=== PATIENT | female | born 1950 | race African-American/Black ===

== ENCOUNTER 2016-07-21 20:44 | Inpatient (IN) | payer MEDICARE, MEDICAID ==
[~2016-07-21] VITALS: Ht 172.7 cm; Wt 67.2 kg
[~2016-07-21 20:44] MED LIST: CALCIUM ACETATE PO; COR12 PO; GABA300C PO; METH10TA2 PO; PROAIR; RISP1 PO; [UNRECOGNIZED DRUG - CODE] PO
[2016-07-21] MEDS ORDERED: ONDANSETRON HCL 4MG/2ML VIAL IV STA (21:23)
[2016-07-21] MEDS ORDERED: MORPHINE SULFATE 4 MG/ML CPJ (NOT FOR IM USE) IV STA (21:23)
[2016-07-21] MEDS ORDERED: ASPIRIN 325MG EC TABLET PO ONE (21:30)
[2016-07-21 22:08] LABS: CHLORIDE 102 mEq/L (98-107)
[2016-07-21 22:09] LABS: EOSINOPHILS % 1.1 % (0.0-5.0); HEMATOCRIT. 23.3 % (36.0-48.0); HEMOGLOBIN. 7.4 g/dL (12.0-16.0); INDEX HEMOLYSI 1 (1-3); INDEX ICTERIC 1 (1-4); INDEX LIPEMIC 1 (1-3); LYMPHOCYTES % 24.5 % (20.0-50.0); MEAN CORPUSCULAR HEMOGLOBIN 26.7 pg (28.0-32.0); MEAN CORPUSCULAR HGB CONC 31.9 g/dL (31.0-37.0); MEAN CORPUSCULAR VOLUME 83.5 fL (81.0-99.0); MEAN PLATELET VOLUME 8.8 fl (7.4-10.4); MONOCYTES % 13.1 % (2.0-8.0); NEUTROPHILS % 60.3 % (40.0-76.0); PLATELET 195 x1000/uL (130-400); RED BLOOD CELL COUNT 2.78 mill/uL (4.2-5.4); RED CELL DISTRIBUTION WIDTH 16.1 % (11.6-14.6); WHITE BLOOD COUNT 7.6 x1000/uL (4.5-11.0)
[2016-07-21 22:12] LABS: ALBUMIN 2.5 g/dL (3.4-5.0); ANION GAP 14; CALCIUM 7.1 mg/dL (8.5-10.1); CARBON DIOXIDE 28 mEq/L (21-32); LIPASE 777 IU/L (73-393); UREA NITROGEN BLOOD 74 mg/dL (7-21)
[2016-07-21 22:15] LABS: INR 1.2; PARTIAL THROMBOPLASTIN TIME 31.7 sec (24.0-34.0)
[2016-07-21 22:17] LABS: ALANINE AMINOTRANSFERASE 19 IU/L (13-61); eGFR 6 mL/min (>60)
[2016-07-21 22:19] LABS: CREATINE KINASE 69 IU/L (26-192)
[2016-07-21 22:20] LABS: TROPONIN I 0.04 ng/mL (0.00-0.04)
[2016-07-21 22:32] LABS: NT PRO B-TYPE NATRIURETIC PEP 106934 pg/mL (5-125)
[2016-07-22 03:59] VITALS: BP 175/95
[2016-07-22 04:41] VITALS: BP 175/95
[2016-07-22] MEDS ORDERED: ASPIRIN 81MG TABLET PO NR (05:45)
[2016-07-22] MEDS ORDERED: DEXTROSE 50% WATER 50ML SYRINGE IV PRN (05:45)
[2016-07-22] MEDS: INSULIN LISPRO 100 UNITS/ML SUBCUT SCH ×4 (06:08→21:00)
[2016-07-22] MEDS: BLOOD SUGAR DIAGNOSTIC STRIP TEST SCH ×4 (06:08→21:08)
[2016-07-22] MEDS: HYDRALAZINE HCL 50MG TABLET PO SCH ×3 (06:14→21:13)
[2016-07-22] MEDS: MORPHINE SULFATE 2 MG/ML CPJ (NOT FOR IM USE) IV PRN ×2 (06:22→21:18)
[2016-07-22 07:46] VITALS: BP 157/84
[2016-07-22] MEDS: METOPROLOL TARTRATE 50MG TABLET PO SCH ×2 (08:22→20:55)
[2016-07-22] MEDS: PANTOPRAZOLE SODIUM 40 MG/VIAL IV SCH (08:22)
[2016-07-22] MEDS: ACETAMINOPHEN 325MG TABLET PO PRN (08:39)
[2016-07-22 09:36] LABS: THYROID STIMULATING HORMONE 1.4 uIU/mL (0.36-3.74); TROPONIN I 0.03 ng/mL (0.00-0.04)
[2016-07-22] MEDS: METHADONE HCL 10MG TABLET PO SCH (11:36)
[2016-07-22 12:00] VITALS: BP 148/82
[2016-07-22 15:57] VITALS: BP 129/74
[2016-07-22] MEDS ORDERED: CALCIUM ACETATE 667 MG PO SCH (17:40)
[2016-07-22] MEDS: CALCIUM ACETATE 667MG CAPSULE PO SCH (17:54)
[2016-07-22 18:47] LABS: HEPATITIS B SURFACE AB 42.6 mIU/mL
[2016-07-22 19:26] LABS: HEPATITIS B CORE AB IGM NEGATIVE
[2016-07-22 20:00] VITALS: BP 152/81
[2016-07-22] MEDS: EPOETIN ALFA 10000UNITS/ML VIAL SUBCUT SCH (20:56)
[2016-07-23] VITALS (15 sets, daily range): BP systolic 138–167; BP diastolic 74–108
[2016-07-23] MEDS: HYDRALAZINE HCL 50MG TABLET PO SCH ×3 (05:12→21:15)
[2016-07-23] MEDS: INSULIN LISPRO 100 UNITS/ML SUBCUT SCH ×4 (06:27→21:00)
[2016-07-23] MEDS: BLOOD SUGAR DIAGNOSTIC STRIP TEST SCH ×4 (06:27→21:18)
[2016-07-23] MEDS: CALCIUM ACETATE 667MG CAPSULE PO SCH ×4 (07:40→16:54)
[2016-07-23 07:51] LABS: BASOPHILS % 1.3 % (0.0-2.0); EOSINOPHILS % 1.8 % (0.0-5.0); HEMATOCRIT. 25.9 % (36.0-48.0); HEMOGLOBIN. 8.1 g/dL (12.0-16.0); LYMPHOCYTES % 25.8 % (20.0-50.0); MEAN CORPUSCULAR HGB CONC 31.4 g/dL (31.0-37.0); MEAN PLATELET VOLUME 8.7 fl (7.4-10.4); MONOCYTES % 14.6 % (2.0-8.0); NEUTROPHILS % 56.5 % (40.0-76.0); PLATELET 210 x1000/uL (130-400); RED BLOOD CELL COUNT 3.12 mill/uL (4.2-5.4); RED CELL DISTRIBUTION WIDTH 15.9 % (11.6-14.6); WHITE BLOOD COUNT 6.4 x1000/uL (4.5-11.0)
[2016-07-23] MEDS: PANTOPRAZOLE SODIUM 40 MG/VIAL IV SCH (08:31)
[2016-07-23] MEDS: METHADONE HCL 10MG TABLET PO SCH (08:32)
[2016-07-23] MEDS: METOPROLOL TARTRATE 50MG TABLET PO SCH ×2 (08:32→21:15)
[2016-07-23] MEDS: CLONIDINE 0.1MG TABLET PO PRN ×2 (10:25→23:34)
[2016-07-23] MEDS: AZITHROMYCIN 500 MG TABLET PO SCH (10:25)
[2016-07-23 13:10] LABS: BASOPHILS % 1.1 % (0.0-2.0); HEMATOCRIT. 28.1 % (36.0-48.0); HEMOGLOBIN. 9.2 g/dL (12.0-16.0); LYMPHOCYTES % 24.1 % (20.0-50.0); MEAN CORPUSCULAR HEMOGLOBIN 27.6 pg (28.0-32.0); MEAN CORPUSCULAR HGB CONC 32.8 g/dL (31.0-37.0); MEAN CORPUSCULAR VOLUME 84.2 fL (81.0-99.0); MEAN PLATELET VOLUME 8.8 fl (7.4-10.4); MONOCYTES % 14.5 % (2.0-8.0); NEUTROPHILS % 59.3 % (40.0-76.0); PLATELET 191 x1000/uL (130-400); RED BLOOD CELL COUNT 3.34 mill/uL (4.2-5.4); RED CELL DISTRIBUTION WIDTH 16.3 % (11.6-14.6); WHITE BLOOD COUNT 5.8 x1000/uL (4.5-11.0)
[2016-07-23 13:43] LABS: CALCIUM 7.5 mg/dL (8.5-10.1); PHOSPHORUS 6.6 mg/dL (2.5-4.9)
[2016-07-23] MEDS: ACETAMINOPHEN 325MG TABLET PO PRN (17:34)
[2016-07-23] MEDS: MORPHINE SULFATE 2 MG/ML CPJ (NOT FOR IM USE) IV PRN (23:36)
[2016-07-24] VITALS: BP 167/89
[2016-07-24 04:00] VITALS: BP 166/90
[2016-07-24] MEDS: HYDRALAZINE HCL 50MG TABLET PO SCH ×3 (05:00→21:56)
[2016-07-24] MEDS: ACETAMINOPHEN 325MG TABLET PO PRN ×3 (05:01→22:04)
[2016-07-24 05:50] LABS: BASOPHILS % 0.8 % (0.0-2.0); EOSINOPHILS % 0.9 % (0.0-5.0); HEMATOCRIT. 28.8 % (36.0-48.0); HEMOGLOBIN. 9.4 g/dL (12.0-16.0); LYMPHOCYTES % 16.2 % (20.0-50.0); MEAN CORPUSCULAR HEMOGLOBIN 27.2 pg (28.0-32.0); MEAN CORPUSCULAR HGB CONC 32.7 g/dL (31.0-37.0); MEAN CORPUSCULAR VOLUME 83.2 fL (81.0-99.0); MEAN PLATELET VOLUME 9.4 fl (7.4-10.4); MONOCYTES % 9.4 % (2.0-8.0); NEUTROPHILS % 72.7 % (40.0-76.0); PLATELET 203 x1000/uL (130-400); RED BLOOD CELL COUNT 3.47 mill/uL (4.2-5.4); RED CELL DISTRIBUTION WIDTH 15.9 % (11.6-14.6); WHITE BLOOD COUNT 8.8 x1000/uL (4.5-11.0)
[2016-07-24 05:54] LABS: CALCIUM 7.6 mg/dL (8.5-10.1)
[2016-07-24] MEDS: INSULIN LISPRO 100 UNITS/ML SUBCUT SCH ×4 (06:14→21:00)
[2016-07-24] MEDS: BLOOD SUGAR DIAGNOSTIC STRIP TEST SCH ×4 (06:14→21:55)
[2016-07-24 08:00] VITALS: BP 196/94
[2016-07-24] MEDS: CALCIUM ACETATE 667MG CAPSULE PO SCH ×3 (08:01→17:16)
[2016-07-24] MEDS: METOPROLOL TARTRATE 50MG TABLET PO SCH ×2 (08:01→21:00)
[2016-07-24] MEDS: METHADONE HCL 10MG TABLET PO SCH (08:05)
[2016-07-24] MEDS: CLONIDINE 0.1MG TABLET PO PRN (08:07)
[2016-07-24] MEDS: AZITHROMYCIN 500 MG TABLET PO SCH (08:22)
[2016-07-24] MEDS: PANTOPRAZOLE SODIUM 40 MG/VIAL IV SCH (09:19)
[2016-07-24 12:00] VITALS: BP 162/83
[2016-07-24 16:00] VITALS: BP 150/82
[2016-07-24 20:00] VITALS: BP 136/69
[2016-07-24] MEDS: EPOETIN ALFA 10000UNITS/ML VIAL SUBCUT SCH (22:00)
[2016-07-25] VITALS (7 sets, daily range): BP systolic 139–169; BP diastolic 72–97
[2016-07-25] MEDS: HYDRALAZINE HCL 50MG TABLET PO SCH ×3 (05:39→21:54)
[2016-07-25] MEDS: BLOOD SUGAR DIAGNOSTIC STRIP TEST SCH ×4 (06:29→20:26)
[2016-07-25] MEDS: INSULIN LISPRO 100 UNITS/ML SUBCUT SCH ×4 (06:29→20:26)
[2016-07-25] MEDS: CALCIUM ACETATE 667MG CAPSULE PO SCH ×3 (07:40→17:40)
[2016-07-25] MEDS: METOPROLOL TARTRATE 50MG TABLET PO SCH ×2 (09:00→20:25)
[2016-07-25] MEDS: METHADONE HCL 10MG TABLET PO SCH (09:23)
[2016-07-25] MEDS: AZITHROMYCIN 500 MG TABLET PO SCH (09:25)
[2016-07-25] MEDS: PANTOPRAZOLE SODIUM 40 MG/VIAL IV SCH (10:29)
[2016-07-25] MEDS ORDERED: DIPHENHYDRAMINE 25MG CAPSULE PO NR (16:00)
[2016-07-25] MEDS ORDERED: DIPHENHYDRAMINE 50MG CAPSULE PO ONE (16:00)
[2016-07-25] MEDS: FAMOTIDINE 20MG TABLET PO SCH (16:14)
[2016-07-26] VITALS (7 sets, daily range): BP systolic 118–161; BP diastolic 69–126
[2016-07-26] MEDS: ACETAMINOPHEN 325MG TABLET PO PRN ×2 (04:48→21:37)
[2016-07-26] MEDS: CLONIDINE 0.1MG TABLET PO PRN (04:48)
[2016-07-26] MEDS: HYDRALAZINE HCL 50MG TABLET PO SCH (05:56)
[2016-07-26] MEDS: BLOOD SUGAR DIAGNOSTIC STRIP TEST SCH ×4 (06:43→21:36)
[2016-07-26] MEDS: INSULIN LISPRO 100 UNITS/ML SUBCUT SCH ×4 (06:43→21:00)
[2016-07-26] MEDS: CALCIUM ACETATE 667MG CAPSULE PO SCH ×4 (07:40→17:11)
[2016-07-26] MEDS: AZITHROMYCIN 500 MG TABLET PO SCH ×2 (09:00→09:29)
[2016-07-26] MEDS: FAMOTIDINE 20MG TABLET PO SCH (09:29)
[2016-07-26] MEDS: METOPROLOL TARTRATE 50MG TABLET PO SCH ×2 (09:30→21:37)
[2016-07-26] MEDS: METHADONE HCL 10MG TABLET PO SCH (09:32)
[2016-07-26] MEDS: HYDRALAZINE HCL 100MG TABLET PO SCH ×2 (13:26→21:38)
[2016-07-27] VITALS: BP 149/112
[2016-07-27 04:00] VITALS: BP 173/139
[2016-07-27] MEDS: HYDRALAZINE HCL 100MG TABLET PO SCH ×3 (05:10→21:05)
[2016-07-27] MEDS: ACETAMINOPHEN 325MG TABLET PO PRN ×2 (05:10→21:05)
[2016-07-27] MEDS: CLONIDINE 0.1MG TABLET PO PRN (05:11)
[2016-07-27] MEDS: BLOOD SUGAR DIAGNOSTIC STRIP TEST SCH ×4 (06:21→21:06)
[2016-07-27] MEDS: INSULIN LISPRO 100 UNITS/ML SUBCUT SCH ×4 (06:22→21:00)
[2016-07-27] MEDS: CALCIUM ACETATE 667MG CAPSULE PO SCH ×4 (07:40→16:45)
[2016-07-27 08:00] VITALS: BP 166/90
[2016-07-27] MEDS: METOPROLOL TARTRATE 50MG TABLET PO SCH ×2 (08:38→21:06)
[2016-07-27] MEDS: FAMOTIDINE 20MG TABLET PO SCH (08:38)
[2016-07-27] MEDS: METHADONE HCL 10MG TABLET PO SCH (08:39)
[2016-07-27] MEDS: AZITHROMYCIN 500 MG TABLET PO SCH ×2 (08:39→08:42)
[2016-07-27 12:00] VITALS: BP 159/88
[2016-07-27 16:00] VITALS: BP 154/98
[2016-07-27 20:00] VITALS: BP 155/83
[2016-07-27] MEDS: EPOETIN ALFA 10000UNITS/ML VIAL SUBCUT SCH (21:05)
[2016-07-28] VITALS: BP 155/83
[2016-07-28 04:00] VITALS: BP 151/82
[2016-07-28] MEDS: HYDRALAZINE HCL 100MG TABLET PO SCH ×2 (07:05→14:00)
[2016-07-28] MEDS: ACETAMINOPHEN 325MG TABLET PO PRN ×2 (07:05→20:20)
[2016-07-28] MEDS: BLOOD SUGAR DIAGNOSTIC STRIP TEST SCH ×4 (07:10→21:00)
[2016-07-28] MEDS: CALCIUM ACETATE 667MG CAPSULE PO SCH ×3 (07:40→17:04)
[2016-07-28 08:00] VITALS: BP 157/100
[2016-07-28] MEDS: FAMOTIDINE 20MG TABLET PO SCH (08:42)
[2016-07-28] MEDS: AZITHROMYCIN 500 MG TABLET PO SCH (08:42)
[2016-07-28] MEDS: METOPROLOL TARTRATE 50MG TABLET PO SCH (08:43)
[2016-07-28] MEDS: METHADONE HCL 10MG TABLET PO SCH (09:39)
[2016-07-28] MEDS: INSULIN LISPRO 100 UNITS/ML SUBCUT SCH ×3 (11:52→21:00)
[2016-07-28] MEDS: CLONIDINE 0.1MG TABLET PO PRN (15:09)
[2016-07-28 16:00] VITALS: BP 164/78
[2016-07-28] MEDS: NIFEDIPINE XL 60MG TAB PO SCH (18:45)
[2016-07-28] MEDS: LOSARTAN POTASSIUM 50 MG TABLET PO SCH (18:55)
[2016-07-28 20:00] VITALS: BP 169/85
[2016-07-29] VITALS: BP 172/87
[2016-07-29] MEDS ORDERED: HYDRALAZINE 20MG/ML VIAL IV SCH
[2016-07-29] MEDS ORDERED: HYDRALAZINE 20MG/ML VIAL IV PRN
[2016-07-29] MEDS: HYDRALAZINE HCL 100MG TABLET PO SCH ×4 (00:01→22:30)
[2016-07-29 04:00] VITALS: BP 167/85
[2016-07-29] MEDS: INSULIN LISPRO 100 UNITS/ML SUBCUT SCH ×4 (06:14→21:00)
[2016-07-29] MEDS: BLOOD SUGAR DIAGNOSTIC STRIP TEST SCH ×4 (06:14→21:00)
[2016-07-29 07:33] VITALS: BP 160/81
[2016-07-29] MEDS: CALCIUM ACETATE 667MG CAPSULE PO SCH ×3 (07:40→17:40)
[2016-07-29] MEDS: NIFEDIPINE XL 60MG TAB PO SCH ×2 (08:50→18:30)
[2016-07-29] MEDS: AZITHROMYCIN 500 MG TABLET PO SCH (08:51)
[2016-07-29] MEDS: FAMOTIDINE 20MG TABLET PO SCH (08:51)
[2016-07-29] MEDS: LOSARTAN POTASSIUM 50 MG TABLET PO SCH ×2 (08:51→18:29)
[2016-07-29] MEDS: METHADONE HCL 10MG TABLET PO SCH (08:51)
[2016-07-29 12:02] VITALS: BP 153/77
[2016-07-29 15:36] LABS: BASOPHILS % 0.6 % (0.0-2.0); EOSINOPHILS % 1.1 % (0.0-5.0); HEMATOCRIT. 31.4 % (36.0-48.0); HEMOGLOBIN. 10.1 g/dL (12.0-16.0); LYMPHOCYTES % 18.1 % (20.0-50.0); MEAN CORPUSCULAR HEMOGLOBIN 27.3 pg (28.0-32.0); MEAN CORPUSCULAR HGB CONC 32.2 g/dL (31.0-37.0); MEAN CORPUSCULAR VOLUME 84.8 fL (81.0-99.0); MONOCYTES % 9.2 % (2.0-8.0); PLATELET 232 x1000/uL (130-400); RED BLOOD CELL COUNT 3.71 mill/uL (4.2-5.4); RED CELL DISTRIBUTION WIDTH 16.7 % (11.6-14.6); WHITE BLOOD COUNT 9.6 x1000/uL (4.5-11.0)
[2016-07-29 15:48] LABS: CALCIUM 7.3 mg/dL (8.5-10.1); PHOSPHORUS 5.9 mg/dL (2.5-4.9)
[2016-07-29 16:00] VITALS: BP 142/72
[2016-07-29 20:00] VITALS: BP 133/89
[2016-07-30] VITALS: BP 125/69
[2016-07-30 04:00] VITALS: BP 140/83
[2016-07-30] MEDS: HYDRALAZINE HCL 100MG TABLET PO SCH ×3 (05:40→22:50)
[2016-07-30] MEDS: INSULIN LISPRO 100 UNITS/ML SUBCUT SCH ×4 (06:41→20:57)
[2016-07-30] MEDS: BLOOD SUGAR DIAGNOSTIC STRIP TEST SCH ×4 (06:41→20:57)
[2016-07-30] MEDS: CALCIUM ACETATE 667MG CAPSULE PO SCH ×3 (07:40→17:39)
[2016-07-30 07:43] VITALS: BP 151/77
[2016-07-30] MEDS: NIFEDIPINE XL 60MG TAB PO SCH ×2 (08:14→17:52)
[2016-07-30] MEDS: LOSARTAN POTASSIUM 50 MG TABLET PO SCH ×2 (08:14→17:52)
[2016-07-30] MEDS: AZITHROMYCIN 500 MG TABLET PO SCH (08:25)
[2016-07-30] MEDS: FAMOTIDINE 20MG TABLET PO SCH (08:27)
[2016-07-30] MEDS: METHADONE HCL 10MG TABLET PO SCH (08:27)
[2016-07-30 12:00] VITALS: BP 161/81
[2016-07-30 13:54] LABS: ALANINE AMINOTRANSFERASE 20 IU/L (13-61); ALBUMIN 2.7 g/dL (3.4-5.0); ANION GAP 13; CALCIUM 7.6 mg/dL (8.5-10.1); CARBON DIOXIDE 28 mEq/L (21-32); CHLORIDE 99 mEq/L (98-107); INDEX HEMOLYSI 1 (1-3); INDEX ICTERIC 1 (1-4); INDEX LIPEMIC 1 (1-3); MAGNESIUM 1.9 mg/dL (1.8-2.4); UREA NITROGEN BLOOD 35 mg/dL (7-21); eGFR 9 mL/min (>60)
[2016-07-30 13:56] LABS: THYROID STIMULATING HORMONE 0.93 uIU/mL (0.36-3.74)
[2016-07-30 15:57] VITALS: BP 160/85
[2016-07-30 20:00] VITALS: BP 160/114
[2016-07-30] MEDS: METOPROLOL TARTRATE 25MG TABLET PO SCH (21:07)
[2016-07-31] VITALS (7 sets, daily range): BP systolic 132–161; BP diastolic 73–110
[2016-07-31 05:43] LABS: EOSINOPHILS % 0.8 % (0.0-5.0); HEMATOCRIT. 31.3 % (36.0-48.0); LYMPHOCYTES % 18.8 % (20.0-50.0); MEAN CORPUSCULAR HEMOGLOBIN 26.8 pg (28.0-32.0); MEAN CORPUSCULAR HGB CONC 31.8 g/dL (31.0-37.0); MEAN CORPUSCULAR VOLUME 84.1 fL (81.0-99.0); MEAN PLATELET VOLUME 8.5 fl (7.4-10.4); MONOCYTES % 10.8 % (2.0-8.0); NEUTROPHILS % 68.6 % (40.0-76.0); PLATELET 246 x1000/uL (130-400); RED BLOOD CELL COUNT 3.72 mill/uL (4.2-5.4); RED CELL DISTRIBUTION WIDTH 16.9 % (11.6-14.6); WHITE BLOOD COUNT 10.2 x1000/uL (4.5-11.0)
[2016-07-31] MEDS: HYDRALAZINE HCL 100MG TABLET PO SCH ×3 (06:00→21:19)
[2016-07-31 06:32] LABS: ALBUMIN 2.5 g/dL (3.4-5.0); ANION GAP 15; CALCIUM 7.7 mg/dL (8.5-10.1); CARBON DIOXIDE 27 mEq/L (21-32); CHLORIDE 100 mEq/L (98-107); INDEX HEMOLYSI 1 (1-3); INDEX ICTERIC 1 (1-4); INDEX LIPEMIC 1 (1-3); UREA NITROGEN BLOOD 39 mg/dL (7-21)
[2016-07-31 06:38] LABS: ALANINE AMINOTRANSFERASE 19 IU/L (13-61); eGFR 7 mL/min (>60)
[2016-07-31] MEDS: BLOOD SUGAR DIAGNOSTIC STRIP TEST SCH ×4 (06:45→20:48)
[2016-07-31] MEDS: INSULIN LISPRO 100 UNITS/ML SUBCUT SCH ×4 (06:45→20:49)
[2016-07-31] MEDS: CALCIUM ACETATE 667MG CAPSULE PO SCH ×3 (07:40→17:40)
[2016-07-31] MEDS: METHADONE HCL 10MG TABLET PO SCH (08:44)
[2016-07-31] MEDS: NIFEDIPINE XL 60MG TAB PO SCH ×2 (08:45→17:42)
[2016-07-31] MEDS: FAMOTIDINE 20MG TABLET PO SCH (08:45)
[2016-07-31] MEDS: LOSARTAN POTASSIUM 50 MG TABLET PO SCH ×2 (08:45→17:42)
[2016-07-31] MEDS: METOPROLOL TARTRATE 25MG TABLET PO SCH ×2 (09:05→21:00)
[2016-07-31 21:05] LABS: HEMATOCRIT. 32.8 % (36.0-48.0); HEMOGLOBIN. 10.3 g/dL (12.0-16.0); MEAN CORPUSCULAR HEMOGLOBIN 26.9 pg (28.0-32.0); MEAN CORPUSCULAR HGB CONC 31.5 g/dL (31.0-37.0); MEAN CORPUSCULAR VOLUME 85.4 fL (81.0-99.0); MEAN PLATELET VOLUME 8.2 fl (7.4-10.4); PLATELET 254 x1000/uL (130-400); RED BLOOD CELL COUNT 3.84 mill/uL (4.2-5.4); RED CELL DISTRIBUTION WIDTH 17.3 % (11.6-14.6)
[2016-07-31 21:06] LABS: DIFFERENTIAL COMMENT 1
[2016-07-31 21:20] LABS: CALCIUM 7.6 mg/dL (8.5-10.1)
[2016-07-31 22:03] LABS: PLATELET ESTIMATE NORMAL
[2016-07-31 22:04] LABS: ANISOCYTOSIS 1+; HYPOCHROMASIA 1+
[2016-08-01] VITALS (8 sets, daily range): BP systolic 138–189; BP diastolic 68–96
[2016-08-01] MEDS: BLOOD SUGAR DIAGNOSTIC STRIP TEST SCH ×4 (06:32→21:40)
[2016-08-01] MEDS: HYDRALAZINE HCL 100MG TABLET PO SCH ×3 (06:43→21:53)
[2016-08-01] MEDS: INSULIN LISPRO 100 UNITS/ML SUBCUT SCH ×4 (06:45→21:00)
[2016-08-01] MEDS: METHADONE HCL 10MG TABLET PO SCH (08:39)
[2016-08-01] MEDS: FAMOTIDINE 20MG TABLET PO SCH (08:39)
[2016-08-01] MEDS: CALCIUM ACETATE 667MG CAPSULE PO SCH ×3 (08:39→17:22)
[2016-08-01] MEDS: METOPROLOL TARTRATE 25MG TABLET PO SCH ×2 (09:00→21:00)
[2016-08-01] MEDS: NIFEDIPINE XL 60MG TAB PO SCH ×2 (09:00→16:28)
[2016-08-01] MEDS: LOSARTAN POTASSIUM 50 MG TABLET PO SCH ×2 (09:00→16:27)
[2016-08-02] VITALS: BP 167/100
[2016-08-02 04:00] VITALS: BP 184/122
[2016-08-02] MEDS: HYDRALAZINE HCL 100MG TABLET PO SCH ×3 (05:18→21:40)
[2016-08-02] MEDS: BLOOD SUGAR DIAGNOSTIC STRIP TEST SCH ×4 (06:37→21:35)
[2016-08-02] MEDS: INSULIN LISPRO 100 UNITS/ML SUBCUT SCH ×4 (06:41→21:00)
[2016-08-02] MEDS: CALCIUM ACETATE 667MG CAPSULE PO SCH ×3 (06:55→17:20)
[2016-08-02 08:00] VITALS: BP 197/95
[2016-08-02] MEDS: METHADONE HCL 10MG TABLET PO SCH (08:43)
[2016-08-02] MEDS: LOSARTAN POTASSIUM 50 MG TABLET PO SCH ×2 (08:43→17:29)
[2016-08-02] MEDS: FAMOTIDINE 20MG TABLET PO SCH (08:44)
[2016-08-02] MEDS: METOPROLOL TARTRATE 25MG TABLET PO SCH ×2 (08:44→21:40)
[2016-08-02] MEDS: NIFEDIPINE XL 60MG TAB PO SCH ×2 (08:44→17:29)
[2016-08-02 12:00] VITALS: BP 142/72
[2016-08-02] MEDS: ACETAMINOPHEN 325MG TABLET PO PRN (15:16)
[2016-08-02 15:47] VITALS: BP 152/79
[2016-08-02 20:00] VITALS: BP 141/72
[2016-08-03] VITALS (8 sets, daily range): BP systolic 154–178; BP diastolic 78–103
[2016-08-03] MEDS: ACETAMINOPHEN 325MG TABLET PO PRN (04:43)
[2016-08-03] MEDS: HYDRALAZINE HCL 100MG TABLET PO SCH ×3 (06:03→21:21)
[2016-08-03] MEDS: BLOOD SUGAR DIAGNOSTIC STRIP TEST SCH ×4 (06:04→20:06)
[2016-08-03] MEDS: INSULIN LISPRO 100 UNITS/ML SUBCUT SCH ×4 (07:40→20:06)
[2016-08-03] MEDS: CALCIUM ACETATE 667MG CAPSULE PO SCH ×3 (07:40→17:40)
[2016-08-03] MEDS: FAMOTIDINE 20MG TABLET PO SCH (08:13)
[2016-08-03] MEDS: NIFEDIPINE XL 60MG TAB PO SCH ×2 (09:00→17:55)
[2016-08-03] MEDS: LOSARTAN POTASSIUM 50 MG TABLET PO SCH ×2 (09:00→17:56)
[2016-08-03] MEDS: METHADONE HCL 10MG TABLET PO SCH (10:35)
[2016-08-03] MEDS: DIPHENHYDRAMINE 25MG CAPSULE PO PRN ×2 (14:29→20:03)
[2016-08-03] MEDS: METOPROLOL TARTRATE 50MG TABLET PO SCH (20:03)
[2016-08-04] VITALS: BP 151/76
[2016-08-04 04:00] VITALS: BP 156/78
[2016-08-04] MEDS: INSULIN LISPRO 100 UNITS/ML SUBCUT SCH ×4 (05:45→21:00)
[2016-08-04] MEDS: BLOOD SUGAR DIAGNOSTIC STRIP TEST SCH ×4 (05:45→21:00)
[2016-08-04] MEDS: HYDRALAZINE HCL 100MG TABLET PO SCH ×3 (06:04→21:55)
[2016-08-04 07:05] LABS: BASOPHILS % 1.1 % (0.0-2.0); EOSINOPHILS % 3.2 % (0.0-5.0); HEMATOCRIT. 34.5 % (36.0-48.0); LYMPHOCYTES % 22.9 % (20.0-50.0); MEAN CORPUSCULAR HGB CONC 31.8 g/dL (31.0-37.0); MEAN CORPUSCULAR VOLUME 84.8 fL (81.0-99.0); MEAN PLATELET VOLUME 8.8 fl (7.4-10.4); MONOCYTES % 13.1 % (2.0-8.0); NEUTROPHILS % 59.7 % (40.0-76.0); PLATELET 200 x1000/uL (130-400); RED BLOOD CELL COUNT 4.07 mill/uL (4.2-5.4); RED CELL DISTRIBUTION WIDTH 17.6 % (11.6-14.6); WHITE BLOOD COUNT 7.8 x1000/uL (4.5-11.0)
[2016-08-04] MEDS: CALCIUM ACETATE 667MG CAPSULE PO SCH ×3 (07:40→17:40)
[2016-08-04 07:54] LABS: CALCIUM 7.7 mg/dL (8.5-10.1)
[2016-08-04 08:00] VITALS: BP_SYST 161; BP_DIAS 78; BP_DIAS 81
[2016-08-04] MEDS: LOSARTAN POTASSIUM 50 MG TABLET PO SCH ×2 (08:33→17:44)
[2016-08-04] MEDS: METHADONE HCL 10MG TABLET PO SCH (08:34)
[2016-08-04] MEDS: METOPROLOL TARTRATE 50MG TABLET PO SCH (08:35)
[2016-08-04] MEDS: FAMOTIDINE 20MG TABLET PO SCH (08:35)
[2016-08-04] MEDS: NIFEDIPINE XL 60MG TAB PO SCH (08:36)
[2016-08-04 12:00] VITALS: BP 122/69
[2016-08-04 16:00] VITALS: BP 146/88
[2016-08-04 18:34] LABS: BASOPHILS % 1.4 % (0.0-2.0); EOSINOPHILS % 3.7 % (0.0-5.0); HEMATOCRIT. 34.1 % (36.0-48.0); HEMOGLOBIN. 10.7 g/dL (12.0-16.0); LYMPHOCYTES % 22.8 % (20.0-50.0); MEAN CORPUSCULAR HEMOGLOBIN 26.8 pg (28.0-32.0); MEAN CORPUSCULAR HGB CONC 31.3 g/dL (31.0-37.0); MEAN CORPUSCULAR VOLUME 85.6 fL (81.0-99.0); MEAN PLATELET VOLUME 8.7 fl (7.4-10.4); MONOCYTES % 12.5 % (2.0-8.0); NEUTROPHILS % 59.6 % (40.0-76.0); PLATELET 195 x1000/uL (130-400); RED BLOOD CELL COUNT 3.98 mill/uL (4.2-5.4); RED CELL DISTRIBUTION WIDTH 17.4 % (11.6-14.6); WHITE BLOOD COUNT 7.6 x1000/uL (4.5-11.0)
[2016-08-04 18:51] LABS: CALCIUM 7.4 mg/dL (8.5-10.1); PHOSPHORUS 6.4 mg/dL (2.5-4.9)
[2016-08-04 20:00] VITALS: BP 149/75
[2016-08-04] MEDS: METOPROLOL TARTRATE 25MG TABLET PO SCH (21:00)
[2016-08-05] VITALS: BP 147/78
[2016-08-05 04:00] VITALS: BP 133/86
[2016-08-05] MEDS: HYDRALAZINE HCL 100MG TABLET PO SCH ×3 (06:02→21:02)
[2016-08-05] MEDS: INSULIN LISPRO 100 UNITS/ML SUBCUT SCH ×4 (06:15→20:31)
[2016-08-05] MEDS: BLOOD SUGAR DIAGNOSTIC STRIP TEST SCH ×4 (06:17→20:31)
[2016-08-05] MEDS: CALCIUM ACETATE 667MG CAPSULE PO SCH ×3 (07:40→16:45)
[2016-08-05 08:00] VITALS: BP 157/101
[2016-08-05] MEDS: METHADONE HCL 10MG TABLET PO SCH (08:10)
[2016-08-05] MEDS: LOSARTAN POTASSIUM 50 MG TABLET PO SCH ×2 (08:10→16:45)
[2016-08-05] MEDS: FAMOTIDINE 20MG TABLET PO SCH (08:11)
[2016-08-05] MEDS: METOPROLOL TARTRATE 25MG TABLET PO SCH ×2 (08:12→21:02)
[2016-08-05] MEDS ORDERED: NIFEDIPINE XL 60MG TAB PO SCH (09:00)
[2016-08-05] MEDS ORDERED: AMLODIPINE 5MG TABLET PO NR (11:30)
[2016-08-05 12:00] VITALS: BP 138/87
[2016-08-05 16:00] VITALS: BP 129/74
[2016-08-05 20:00] VITALS: BP 145/79
[2016-08-05] MEDS: ACETAMINOPHEN 325MG TABLET PO PRN (21:00)
[2016-08-05] MEDS: DIPHENHYDRAMINE 25MG CAPSULE PO PRN (21:02)
[2016-08-06] VITALS (7 sets, daily range): BP systolic 142–168; BP diastolic 77–98
[2016-08-06] MEDS: HYDRALAZINE HCL 100MG TABLET PO SCH ×2 (05:41→15:00)
[2016-08-06] MEDS: BLOOD SUGAR DIAGNOSTIC STRIP TEST SCH ×2 (06:28→11:51)
[2016-08-06] MEDS: INSULIN LISPRO 100 UNITS/ML SUBCUT SCH ×2 (06:29→11:52)
[2016-08-06] MEDS: CALCIUM ACETATE 667MG CAPSULE PO SCH ×2 (07:40→08:29)
[2016-08-06] MEDS: FAMOTIDINE 20MG TABLET PO SCH (08:29)
[2016-08-06] MEDS: METHADONE HCL 10MG TABLET PO SCH (08:31)
[2016-08-06] MEDS: LOSARTAN POTASSIUM 50 MG TABLET PO SCH (08:32)
[2016-08-06] MEDS: METOPROLOL TARTRATE 25MG TABLET PO SCH (08:32)
[2016-08-06] MEDS ORDERED: AMLODIPINE 5MG TABLET PO SCH ×2 (09:00→21:00)
== END 2016-08-06 20:50 | disposition home or self-care (01) | DRG 194 ==
LOC: ER 20:59 → OBSVTOIN 07-22 00:03 → INTOOBSV 07-22 00:03 → 8WST 07-22 00:03
PROVIDERS: ADMIT Internal Medicine; ATTEND Internal Medicine
PROC: 5A1D60Z (ICD-10-PCS; principal; 2016-08-03)
DX: I13.2 Hypertensive heart and chronic kidney disease with heart failure and with stage 5 chronic kidney disease, or end stage renal disease (principal); J84.9 Interstitial pulmonary disease, unspecified; N18.6 End stage renal disease; E11.21 Type 2 diabetes mellitus with diabetic nephropathy; R71.0 Precipitous drop in hematocrit; E11.22 Type 2 diabetes mellitus with diabetic chronic kidney disease; I25.119 Atherosclerotic heart disease of native coronary artery with unspecified angina pectoris; I50.23 Acute on chronic systolic (congestive) heart failure; D63.1 Anemia in chronic kidney disease; F11.20 Opioid dependence, uncomplicated; E87.5 Hyperkalemia; F20.9 Schizophrenia, unspecified; I35.8 Other nonrheumatic aortic valve disorders; J40 Bronchitis, not specified as acute or chronic; Z82.49 Family history of ischemic heart disease and other diseases of the circulatory system; Z99.2 Dependence on renal dialysis; E87.70 Fluid overload, unspecified
CPT/HCPCS: 36415; 71010; 80048; 80051; 80053; 80061; 82550; 82728; 82962; 83540; 83550; 83690; 83735; 83880; 84100; 84443; 84484; 85025; 85610; 85730; 86705; 86706; 86850; 86870; 86880; 86900; 86920; 93005; 96374; 96375; 97116; 97162; 97530; 99285; A6261; C1893; C9113; J0360; J0885; J2270; J2405; J7030; J7040; P9016; Q0163

== ENCOUNTER 2016-11-30 21:42 | Emergency (ER) | payer MEDICARE, MEDICAID ==
[~2016-11-30] VITALS: Ht 167.6 cm; Wt 58.6 kg
[~2016-11-30 21:42] MED LIST changes: +ACET-2178 PO; +ACET1TAB12 PO; +AMLO5TAB4 PO; +BISA-81 PO; +CHOL20004 PO; +DOXA2TAB PO; +DULCOLAX SUPPOSITORY RC; +FLEET ENEMA RC; +HYDR-4134 PO; +LOSA100T3 PO; +MILK OF MAGNESIA PO; +OMEP20CA10 PO; +QUET25TA PO
[2016-11-30] MEDS ORDERED: KETOROLAC 15MG/ML VIAL IV ONE (23:15)
[2016-11-30] MEDS ORDERED: LORAZEPAM 2MG/ML CPJ IV ONE (23:15)
[2016-11-30 23:54] LABS: BASOPHILS % 0.5 % (0.0-2.0); EOSINOPHILS % 6.1 % (0.0-5.0); HEMATOCRIT. 26.8 % (36.0-48.0); HEMOGLOBIN. 8.8 g/dL (12.0-16.0); LYMPHOCYTES % 20.9 % (20.0-50.0); MEAN CORPUSCULAR VOLUME 82.6 fL (81.0-99.0); MEAN PLATELET VOLUME 7.8 fl (7.4-10.4); MONOCYTES % 11.8 % (2.0-8.0); NEUTROPHILS % 60.7 % (40.0-76.0); PLATELET 127 x1000/uL (130-400); RED BLOOD CELL COUNT 3.25 mill/uL (4.2-5.4); RED CELL DISTRIBUTION WIDTH 18.3 % (11.6-14.6)
[2016-12-01 00:02] LABS: PARTIAL THROMBOPLASTIN TIME 30.9 sec (24.0-34.0); PROTHROMBIN TIME 10.8 sec
[2016-12-01 00:12] LABS: CARBON DIOXIDE 27 mEq/L (21-32); CHLORIDE 101 mEq/L (98-107); TROPONIN I 0.03 ng/mL (0.00-0.04)
[2016-12-01 04:53] VITALS: BP 151/84
== END 2016-12-01 05:10 ==
LOC: ER 22:35
DX: F41.0 Panic disorder [episodic paroxysmal anxiety] (principal); I12.0 Hypertensive chronic kidney disease with stage 5 chronic kidney disease or end stage renal disease; N18.6 End stage renal disease; Z99.2 Dependence on renal dialysis; R19.7 Diarrhea, unspecified; M79.602 Pain in left arm; Z79.899 Other long term (current) drug therapy
CPT/HCPCS: 36415; 71010; 80053; 84484; 85025; 85610; 85730; 93005; 96374; 96375; 99285; J1885; J2060

== ENCOUNTER 2017-07-12 13:55 | Inpatient (IN) | payer MEDICARE, MEDICAID ==
[~2017-07-12] VITALS: Ht 175.3 cm; Wt 68.0 kg
[~2017-07-12 13:55] MED LIST changes: -BISA-81 PO; +BISA-81 RC
[2017-07-12] MEDS ORDERED: SODIUM CHLORIDE 0.9% 250 ML IV ONE (14:29)
[2017-07-12] MEDS ORDERED: OSELTAMIVIR 75MG CAPSULE PO ONE (14:30)
[2017-07-12] MEDS ORDERED: LEVOFLOXACIN 750MG PREMIX 150 ML IV ONE (14:30)
[2017-07-12 15:19] LABS: BASOPHILS % 0.7 % (0.0-2.0); EOSINOPHILS % 0.7 % (0.0-5.0); HEMATOCRIT. 23.9 % (36.0-48.0); HEMOGLOBIN. 7.2 g/dL (12.0-16.0); LYMPHOCYTES % 13.5 % (20.0-50.0); MEAN CORPUSCULAR HEMOGLOBIN 24.6 pg (28.0-32.0); MEAN CORPUSCULAR VOLUME 81.8 fL (81.0-99.0); MEAN PLATELET VOLUME 6.8 fl (7.4-10.4); MONOCYTES % 9.1 % (2.0-8.0); PLATELET 467 x1000/uL (130-400); RED BLOOD CELL COUNT 2.91 mill/uL (4.2-5.4); RED CELL DISTRIBUTION WIDTH 16.8 % (11.6-14.6)
[2017-07-12 15:28] LABS: CHLORIDE 98 mEq/L (98-107)
[2017-07-12 15:34] LABS: TROPONIN I < 0.02 ng/mL (0.00-0.04)
[2017-07-12 15:58] LABS: INR 1.1; PARTIAL THROMBOPLASTIN TIME 34.4 sec (23.4-31.0); PROTHROMBIN TIME 11.7 sec (9.4-11.6)
[2017-07-12] MEDS ORDERED: DIPHENHYDRAMINE 50MG/ML VIAL IV PRN (18:00)
[2017-07-12] MEDS ORDERED: IPRATROPIUM/ALBUTEROL 0.5-3(2.5)MG/3ML NEB INH PRN (18:00)
[2017-07-12] MEDS ORDERED: NA PHOS,M-B/NA PHOS,DI-BA ENEMA 118ML PR PRN (18:00)
[2017-07-12] MEDS ORDERED: ONDANSETRON HCL 4MG/2ML VIAL IV PRN (18:00)
[2017-07-12] MEDS ORDERED: GUAIFENESIN 200MG/10ML SUGAR FREE UDC PO PRN (18:00)
[2017-07-12] MEDS ORDERED: NITROGLYCERIN 0.4MG TABLET SL SL PRN (18:00)
[2017-07-12] MEDS ORDERED: DOCUSATE SODIUM 100MG CAPSULE PO PRN (18:00)
[2017-07-12] MEDS ORDERED: CLONIDINE 0.1MG TABLET PO PRN (18:00)
[2017-07-12] MEDS ORDERED: MAGNESIUM/ALUMINUM HYDROXIDE/SIMETHICONE 30ML UDC PO PRN (18:00)
[2017-07-12 21:20] VITALS: BP 110/62
[2017-07-12] MEDS: CARVEDILOL 3.125 MG TABLET PO SCH (21:20)
[2017-07-12] MEDS ORDERED: ATOR20TA PO (22:19)
[2017-07-12] MEDS ORDERED: DOXA2TAB PO (22:19)
[2017-07-12] MEDS ORDERED: DOCU-138 PO (22:20)
[2017-07-12] MEDS ORDERED: LOSA100T3 PO (22:23)
[2017-07-12] MEDS ORDERED: COR3 PO (22:23)
[2017-07-12] MEDS ORDERED: SEVE800T8 PO (22:36)
[2017-07-12] MEDS ORDERED: FOLI0.8T23 PO (22:36)
[2017-07-12] MEDS ORDERED: FERR325T6 PO (22:36)
[2017-07-12] MEDS ORDERED: NUT.237L64 PO (22:36)
[2017-07-12] MEDS: GUAIFENESIN/DM 600MG/30MG ER TAB 12HR PO SCH (23:40)
[2017-07-12] MEDS: CEFTRIAXONE 1 G PREMIX 50 ML IV SCH (23:40)
[2017-07-13] VITALS: BP 99/54
[2017-07-13] MEDS ORDERED: AZITHROMYCIN 500 MG in DEXT 5% WATER 250 ML IV SCH ×2
[2017-07-13 02:09] LABS: CREATINE KINASE 24 IU/L (26-192); CREATINE KINASE MB FRACTION 0.7 ng/mL (0.5-3.6); TROPONIN I < 0.02 ng/mL (0.00-0.04)
[2017-07-13 04:00] VITALS: BP 98/48
[2017-07-13] MEDS: CARVEDILOL 3.125 MG TABLET PO SCH ×2 (04:56→17:43)
[2017-07-13 08:00] VITALS: BP 93/50
[2017-07-13] MEDS: SEVELAMER CARBONATE 800 MG TABLET PO SCH ×3 (08:50→19:14)
[2017-07-13] MEDS: TRAMADOL 50MG TABLET PO PRN ×2 (08:51→20:12)
[2017-07-13] MEDS: LORAZEPAM 0.5MG TABLET PO PRN (08:52)
[2017-07-13] MEDS: ASPIRIN 325MG EC TABLET PO SCH (08:53)
[2017-07-13] MEDS: ENOXAPARIN 30MG/0.3ML SYR SUBCUT SCH (08:53)
[2017-07-13] MEDS: FAMOTIDINE 20MG/2ML VIAL IV SCH (08:53)
[2017-07-13] MEDS: GUAIFENESIN/DM 600MG/30MG ER TAB 12HR PO SCH ×2 (09:00→22:44)
[2017-07-13] MEDS ORDERED: CEFTRIAXONE 1 G PREMIX 50 ML IV SCH (09:00)
[2017-07-13 10:45] LABS: CREATINE KINASE 20 IU/L (26-192); CREATINE KINASE MB FRACTION 0.6 ng/mL (0.5-3.6); TROPONIN I < 0.02 ng/mL (0.00-0.04)
[2017-07-13] MEDS ORDERED: IOHEXOL-300 100 ML BOTTLE ONE (11:56)
[2017-07-13 12:00] VITALS: BP 97/52
[2017-07-13 16:00] VITALS: BP 94/48
[2017-07-13] MEDS ORDERED: HEPARIN SODIUM 1,000 UNIT/1ML VIAL IV NR (19:30)
[2017-07-13 20:26] VITALS: BP 108/58
[2017-07-13] MEDS: AZITHROMYCIN 500 MG in DEXT 5% WATER 250 ML IV SCH (22:45)
[2017-07-14] MEDS: ZOLPIDEM TARTRATE 5MG TABLET PO PRN (00:05)
[2017-07-14] MEDS: CEFTRIAXONE 1 G PREMIX 50 ML IV SCH ×2 (00:05→23:22)
[2017-07-14 00:16] VITALS: BP 101/58
[2017-07-14 04:00] VITALS: BP 134/74
[2017-07-14] MEDS: LORAZEPAM 0.5MG TABLET PO PRN ×2 (04:38→19:47)
[2017-07-14] MEDS: CARVEDILOL 3.125 MG TABLET PO SCH ×2 (04:38→17:17)
[2017-07-14] MEDS: TRAMADOL 50MG TABLET PO PRN ×3 (04:38→23:40)
[2017-07-14 08:00] VITALS: BP 134/72
[2017-07-14] MEDS: ACETAMINOPHEN 325MG TABLET PO PRN ×3 (08:13→19:16)
[2017-07-14] MEDS: ASPIRIN 325MG EC TABLET PO SCH (08:13)
[2017-07-14] MEDS: SEVELAMER CARBONATE 800 MG TABLET PO SCH ×3 (08:13→17:21)
[2017-07-14] MEDS: GUAIFENESIN/DM 600MG/30MG ER TAB 12HR PO SCH ×2 (08:13→21:11)
[2017-07-14] MEDS: ENOXAPARIN 30MG/0.3ML SYR SUBCUT SCH (09:00)
[2017-07-14] MEDS: FAMOTIDINE 20MG/2ML VIAL IV SCH (10:45)
[2017-07-14 12:00] VITALS: BP 109/54
[2017-07-14 16:00] VITALS: BP 109/53
[2017-07-14 20:00] VITALS: BP 133/68
[2017-07-14] MEDS: AZITHROMYCIN 500 MG in DEXT 5% WATER 250 ML IV SCH (21:11)
[2017-07-15] VITALS (9 sets, daily range): BP systolic 123–158; BP diastolic 64–81
[2017-07-15] MEDS: ZOLPIDEM TARTRATE 5MG TABLET PO PRN (02:16)
[2017-07-15] MEDS: ACETAMINOPHEN 325MG TABLET PO PRN ×2 (04:46→19:33)
[2017-07-15] MEDS: CARVEDILOL 3.125 MG TABLET PO SCH ×2 (05:38→17:46)
[2017-07-15 06:30] LABS: BASOPHILS % 0.7 % (0.0-2.0); EOSINOPHILS % 0.8 % (0.0-5.0); HEMATOCRIT. 22.6 % (36.0-48.0); LYMPHOCYTES % 14.1 % (20.0-50.0); MEAN CORPUSCULAR HEMOGLOBIN 24.4 pg (28.0-32.0); MEAN CORPUSCULAR VOLUME 81.3 fL (81.0-99.0); MEAN PLATELET VOLUME 7.2 fl (7.4-10.4); MONOCYTES % 10.1 % (2.0-8.0); NEUTROPHILS % 74.3 % (40.0-76.0); PLATELET 433 x1000/uL (130-400); RED BLOOD CELL COUNT 2.78 mill/uL (4.2-5.4); RED CELL DISTRIBUTION WIDTH 17.1 % (11.6-14.6)
[2017-07-15] MEDS: LORAZEPAM 0.5MG TABLET PO PRN ×4 (06:33→20:05)
[2017-07-15 06:43] LABS: HEMOGLOBIN. 6.8 g/dL (12.0-16.0)
[2017-07-15] MEDS: ENOXAPARIN 30MG/0.3ML SYR SUBCUT SCH (09:24)
[2017-07-15] MEDS: GUAIFENESIN/DM 600MG/30MG ER TAB 12HR PO SCH ×2 (09:25→20:05)
[2017-07-15] MEDS: TRAMADOL 50MG TABLET PO PRN ×2 (09:25→16:04)
[2017-07-15] MEDS: SEVELAMER CARBONATE 800 MG TABLET PO SCH ×3 (09:25→17:46)
[2017-07-15] MEDS: FAMOTIDINE 20MG/2ML VIAL IV SCH (09:26)
[2017-07-15 15:49] LABS: HEMATOCRIT 30.3 % (36.0-48.0); HEMOGLOBIN 9.5 g/dL (12.0-16.0)
[2017-07-15] MEDS ORDERED: AZITHROMYCIN 500 MG in SODIUM CHLORIDE 0.9% 250 ML IV SCH (21:00)
[2017-07-15] MEDS ORDERED: AZITHROMYCIN 250 MG TABLET PO SCH (21:00)
[2017-07-16] VITALS: BP 145/67
[2017-07-16] MEDS: ZOLPIDEM TARTRATE 5MG TABLET PO PRN (00:54)
[2017-07-16] MEDS: LORAZEPAM 0.5MG TABLET PO PRN (02:38)
[2017-07-16 04:00] VITALS: BP 138/76
[2017-07-16] MEDS: TRAMADOL 50MG TABLET PO PRN (04:10)
[2017-07-16] MEDS: CARVEDILOL 3.125 MG TABLET PO SCH ×2 (06:15→18:30)
[2017-07-16] MEDS: ACETAMINOPHEN 325MG TABLET PO PRN ×2 (06:16→19:19)
[2017-07-16 08:00] VITALS: BP 150/66
[2017-07-16] MEDS: GUAIFENESIN/DM 600MG/30MG ER TAB 12HR PO SCH (08:37)
[2017-07-16] MEDS: SEVELAMER CARBONATE 800 MG TABLET PO SCH ×3 (08:37→18:30)
[2017-07-16] MEDS: FAMOTIDINE 20MG/2ML VIAL IV SCH (08:38)
[2017-07-16] MEDS: ENOXAPARIN 30MG/0.3ML SYR SUBCUT SCH (08:38)
[2017-07-16] MEDS ORDERED: METHADONE HCL 10MG TABLET PO SCH (09:00)
[2017-07-16 12:00] VITALS: BP 117/45
[2017-07-16 16:00] VITALS: BP 135/81
[2017-07-16 18:48] VITALS: BP 135/81
== END 2017-07-16 20:18 | DRG 720 ==
LOC: ER 14:29 → 7WST 17:52 → SUPCPDRO 17:52 → EDBEDREQ 17:54 → ENRESERV 20:42
PROVIDERS: ADMIT Internal Medicine; ATTEND Internal Medicine
PROC: 5A1D70Z Performance of Urinary Filtration, Intermittent, Less than 6 Hours Per Day (ICD-10-PCS; 2017-07-13)
PROC: 5A1D70Z Performance of Urinary Filtration, Intermittent, Less than 6 Hours Per Day (ICD-10-PCS; 2017-07-14)
PROC: 30233N1 Transfusion of Nonautologous Red Blood Cells into Peripheral Vein, Percutaneous Approach (ICD-10-PCS; principal; 2017-07-15)
DX: A41.9 Sepsis, unspecified organism (principal); E43 Unspecified severe protein-calorie malnutrition; I13.2 Hypertensive heart and chronic kidney disease with heart failure and with stage 5 chronic kidney disease, or end stage renal disease; J18.9 Pneumonia, unspecified organism; N18.6 End stage renal disease; I50.9 Heart failure, unspecified; E87.1 Hypo-osmolality and hyponatremia; F11.20 Opioid dependence, uncomplicated; Z99.2 Dependence on renal dialysis; R91.8 Other nonspecific abnormal finding of lung field; D63.8 Anemia in other chronic diseases classified elsewhere; E83.51 Hypocalcemia; F41.9 Anxiety disorder, unspecified; K21.9 Gastro-esophageal reflux disease without esophagitis; Z87.891 Personal history of nicotine dependence; Z68.22 Body mass index [BMI] 22.0-22.9, adult; Z79.899 Other long term (current) drug therapy; Z87.01 Personal history of pneumonia (recurrent)
CPT/HCPCS: 36415; 71045; 71260; 80048; 80053; 80061; 82550; 82553; 83036; 83605; 83880; 84484; 85014; 85018; 85025; 85610; 85730; 86850; 86870; 86900; 86920; 87040; 87804; 93005; 93306; 93970; 96365; 96366; 99285; J0456; J0696; J1644; J1650; J1956; J3490; J7030; J7050; J7060; P9016; Q9967

== ENCOUNTER 2017-07-23 13:51 | Inpatient (IN) | payer MEDICARE, MEDICAID ==
[~2017-07-23] VITALS: Ht 162.6 cm; Wt 63.5 kg
[~2017-07-23 13:51] MED LIST changes: -ACET1TAB12 PO; -AMLO5TAB4 PO; +ATOR20TA PO; -CALCIUM ACETATE PO; -COR12 PO; +COR3 PO; +DOCU-138 PO; -DULCOLAX SUPPOSITORY RC; +FERR325T6 PO; -FLEET ENEMA RC; +FOLI0.8T23 PO; +NUT.237L64 PO; -OMEP20CA10 PO; -PROAIR; -RISP1 PO; +SEVE800T8 PO; -[UNRECOGNIZED DRUG - CODE] PO
[2017-07-23 15:12] LABS: HEMATOCRIT. 22.9 % (36.0-48.0); MEAN CORPUSCULAR HEMOGLOBIN 25.2 pg (28.0-32.0); MEAN CORPUSCULAR VOLUME 82.1 fL (81.0-99.0); MEAN PLATELET VOLUME 7.2 fl (7.4-10.4); PLATELET 466 x1000/uL (130-400); RED BLOOD CELL COUNT 2.79 mill/uL (4.2-5.4); RED CELL DISTRIBUTION WIDTH 17.1 % (11.6-14.6)
[2017-07-23 15:19] LABS: CHLORIDE 101 mEq/L (98-107)
[2017-07-23 15:22] LABS: INR 1.1; PROTHROMBIN TIME 11.8 sec (9.4-11.6)
[2017-07-23] MEDS ORDERED: ACETAMINOPHEN WITH CODEINE 300/30MG TABLET PO ONE (15:45)
[2017-07-23] MEDS ORDERED: SODIUM CHLORIDE 0.9% 1,000 ML IV ONE (16:17)
[2017-07-23] MEDS ORDERED: VANCOMYCIN 1 G PREMIX 200 ML IV ONE (16:45)
[2017-07-23] MEDS ORDERED: PIPERACILLIN/TAZ 3.375G PREMIX 50 ML IV ONE (16:45)
[2017-07-23 17:12] LABS: PLATELET ESTIMATE INCREASED
[2017-07-23 21:00] VITALS: BP 97/57
[2017-07-23] MEDS ORDERED: AMLO2.5T45 PO ×2 (21:05→21:07)
[2017-07-23] MEDS ORDERED: PNEUMOCOCCAL 23-VAL P-SAC VAC 0.5 ML IM ONE (22:00)
[2017-07-23] MEDS ORDERED: INFLUENZA VIRUS VACCINE 0.5ML SYR IM ONE (22:00)
[2017-07-23 22:03] VITALS: BP 99/52
[2017-07-23 22:39] VITALS: BP 97/57
[2017-07-23] MEDS ORDERED: PIPERACILLIN/TAZ 3.375G PREMIX 50 ML IV SCH (23:15)
[2017-07-23] MEDS ORDERED: ONDANSETRON HCL 4MG/2ML VIAL IV PRN (23:15)
[2017-07-23] MEDS ORDERED: DEXTROSE 50% WATER 50ML SYRINGE IV PRN (23:30)
[2017-07-24] VITALS (15 sets, daily range): BP systolic 92–150; BP diastolic 51–98
[2017-07-24] MEDS: ACETAMINOPHEN 325MG TABLET PO PRN ×2 (00:52→19:58)
[2017-07-24] MEDS: PIPERACILLIN/TAZ 2.25G PREMIX 50 ML IV SCH ×3 (01:32→18:18)
[2017-07-24] MEDS: SEVELAMER CARBONATE 800 MG TABLET PO SCH ×3 (05:23→18:18)
[2017-07-24] MEDS: BLOOD SUGAR DIAGNOSTIC STRIP TEST SCH ×4 (05:34→20:42)
[2017-07-24] MEDS: INSULIN LISPRO 100 UNITS/ML SUBCUT SCH ×4 (07:20→20:42)
[2017-07-24 07:31] LABS: BASOPHILS % 1.1 % (0.0-2.0); EOSINOPHILS % 0.9 % (0.0-5.0); HEMATOCRIT. 22.4 % (36.0-48.0); LYMPHOCYTES % 10.5 % (20.0-50.0); MEAN CORPUSCULAR HEMOGLOBIN 24.7 pg (28.0-32.0); MEAN CORPUSCULAR VOLUME 82.2 fL (81.0-99.0); MEAN PLATELET VOLUME 7.6 fl (7.4-10.4); MONOCYTES % 9.9 % (2.0-8.0); NEUTROPHILS % 77.6 % (40.0-76.0); PLATELET 473 x1000/uL (130-400); RED BLOOD CELL COUNT 2.72 mill/uL (4.2-5.4); RED CELL DISTRIBUTION WIDTH 17.5 % (11.6-14.6)
[2017-07-24 07:45] LABS: HEMOGLOBIN. 6.7 g/dL (12.0-16.0)
[2017-07-24] MEDS: FOLIC ACID/VITAMIN B COMP W-C TABLET PO SCH (08:29)
[2017-07-24] MEDS: METHADONE HCL 10MG TABLET PO SCH (08:29)
[2017-07-24] MEDS ORDERED: VANCOMYCIN 750 MG PREMIX 150 ML IV SCH (16:00)
[2017-07-24 16:54] LABS: HEMATOCRIT 28.7 % (36.0-48.0); HEMOGLOBIN 9.1 g/dL (12.0-16.0)
[2017-07-24] MEDS: QUETIAPINE FUMARATE 25MG TABLET PO SCH (18:18)
[2017-07-24] MEDS: HYDROCODONE/ACETAMINOPHEN 5/325MG TABLET PO PRN ×2 (18:26→22:04)
[2017-07-24] MEDS: ATORVASTATIN CALCIUM 20MG TABLET PO SCH (20:59)
[2017-07-25] VITALS (10 sets, daily range): BP systolic 98–120; BP diastolic 49–70
[2017-07-25] MEDS: HYDROCODONE/ACETAMINOPHEN 5/325MG TABLET PO PRN ×4 (01:55→18:36)
[2017-07-25] MEDS: PIPERACILLIN/TAZ 2.25G PREMIX 50 ML IV SCH ×3 (01:55→18:38)
[2017-07-25] MEDS: SEVELAMER CARBONATE 800 MG TABLET PO SCH ×3 (06:05→18:36)
[2017-07-25] MEDS: BLOOD SUGAR DIAGNOSTIC STRIP TEST SCH ×5 (06:09→21:47)
[2017-07-25] MEDS: INSULIN LISPRO 100 UNITS/ML SUBCUT SCH ×4 (06:24→21:00)
[2017-07-25 07:13] LABS: BASOPHILS % 0.8 % (0.0-2.0); EOSINOPHILS % 0.5 % (0.0-5.0); HEMATOCRIT. 25.6 % (36.0-48.0); HEMOGLOBIN. 7.8 g/dL (12.0-16.0); LYMPHOCYTES % 11.2 % (20.0-50.0); MEAN CORPUSCULAR HEMOGLOBIN 25.4 pg (28.0-32.0); MEAN CORPUSCULAR VOLUME 83.2 fL (81.0-99.0); MEAN PLATELET VOLUME 7.4 fl (7.4-10.4); NEUTROPHILS % 76.5 % (40.0-76.0); PLATELET 507 x1000/uL (130-400); RED BLOOD CELL COUNT 3.07 mill/uL (4.2-5.4); RED CELL DISTRIBUTION WIDTH 17.8 % (11.6-14.6)
[2017-07-25] MEDS: FOLIC ACID/VITAMIN B COMP W-C TABLET PO SCH (08:51)
[2017-07-25] MEDS: METHADONE HCL 10MG TABLET PO SCH (08:52)
[2017-07-25 14:36] LABS: BG CARBOXYHEMOGLOBIN 1.8 % (0.5-1.5); BG DEOXYHEMOGLOBIN 4.9 % (0.0-5.0); BG HCO3 ACT 24.8 mmol/L (22.0-26.0); BG METHEMOGLOBIN 0.3 % (0.0-1.5); BG PCO2 52.2 mmHg (35.0-45.0); BG PH 7.294 (7.350-7.450); BG PO2 79.7 mmHg (75.0-100.0); BG SAMPLE SITE RIGHT RADIAL; BG TOTAL HEMOGLOBIN 9.5 g/dL (12.0-18.0); BG VENT MODE NASAL CANNULA
[2017-07-25] MEDS ORDERED: METHYLPREDNISOLONE SOD SUCC 125 MG/2 ML VIAL IV NR (15:00)
[2017-07-25] MEDS ORDERED: METHYLPREDNISOLONE SOD SUCC 40 MG/ML VIAL IV SCH (15:00)
[2017-07-25] MEDS: IPRATROPIUM/ALBUTEROL 0.5-3(2.5)MG/3ML NEB HHN SCH ×2 (15:39→22:38)
[2017-07-25] MEDS: METHYLPREDNISOLONE SOD SUCC 40 MG/ML VIAL IV SCH (21:47)
[2017-07-25] MEDS: QUETIAPINE FUMARATE 25MG TABLET PO SCH (21:47)
[2017-07-25] MEDS: ATORVASTATIN CALCIUM 20MG TABLET PO SCH (21:47)
[2017-07-26] VITALS: BP 96/53
[2017-07-26] MEDS: IPRATROPIUM/ALBUTEROL 0.5-3(2.5)MG/3ML NEB HHN SCH ×6 (01:33→21:25)
[2017-07-26] MEDS: PIPERACILLIN/TAZ 2.25G PREMIX 50 ML IV SCH ×3 (02:05→17:56)
[2017-07-26] MEDS: HYDROCODONE/ACETAMINOPHEN 5/325MG TABLET PO PRN ×3 (02:06→20:05)
[2017-07-26 04:00] VITALS: BP 110/77
[2017-07-26] MEDS: METHYLPREDNISOLONE SOD SUCC 40 MG/ML VIAL IV SCH ×3 (05:46→21:13)
[2017-07-26] MEDS: BLOOD SUGAR DIAGNOSTIC STRIP TEST SCH ×4 (06:18→21:02)
[2017-07-26] MEDS: INSULIN LISPRO 100 UNITS/ML SUBCUT SCH ×4 (07:13→21:00)
[2017-07-26 07:34] LABS: HEMATOCRIT. 25.5 % (36.0-48.0); HEMOGLOBIN. 7.7 g/dL (12.0-16.0); MEAN PLATELET VOLUME 7.3 fl (7.4-10.4); PLATELET 521 x1000/uL (130-400); RED BLOOD CELL COUNT 3.07 mill/uL (4.2-5.4)
[2017-07-26 08:00] VITALS: BP 119/62
[2017-07-26] MEDS: SEVELAMER CARBONATE 800 MG TABLET PO SCH ×3 (08:53→17:56)
[2017-07-26] MEDS: FOLIC ACID/VITAMIN B COMP W-C TABLET PO SCH (08:53)
[2017-07-26] MEDS: METHADONE HCL 10MG TABLET PO SCH (08:55)
[2017-07-26 12:00] VITALS: BP 110/63
[2017-07-26 16:00] VITALS: BP 104/61
[2017-07-26] MEDS: QUETIAPINE FUMARATE 25MG TABLET PO SCH (16:51)
[2017-07-26] MEDS ORDERED: VANCOMYCIN 750 MG PREMIX 150 ML IV NR (17:00)
[2017-07-26 17:59] LABS: PLATELET ESTIMATE INCREASED
[2017-07-26 20:00] VITALS: BP 101/55
[2017-07-26] MEDS: ATORVASTATIN CALCIUM 20MG TABLET PO SCH (21:13)
[2017-07-27] VITALS: BP 125/62
[2017-07-27] MEDS: HYDROCODONE/ACETAMINOPHEN 5/325MG TABLET PO PRN ×3 (00:39→17:59)
[2017-07-27] MEDS: IPRATROPIUM/ALBUTEROL 0.5-3(2.5)MG/3ML NEB HHN SCH ×6 (00:55→20:57)
[2017-07-27] MEDS: PIPERACILLIN/TAZ 2.25G PREMIX 50 ML IV SCH ×3 (02:23→18:00)
[2017-07-27 04:00] VITALS: BP 121/75
[2017-07-27] MEDS: METHYLPREDNISOLONE SOD SUCC 40 MG/ML VIAL IV SCH ×3 (05:49→22:16)
[2017-07-27] MEDS: BLOOD SUGAR DIAGNOSTIC STRIP TEST SCH ×4 (05:49→21:00)
[2017-07-27 08:00] VITALS: BP 137/73
[2017-07-27] MEDS: INSULIN LISPRO 100 UNITS/ML SUBCUT SCH ×4 (08:10→21:00)
[2017-07-27] MEDS: FOLIC ACID/VITAMIN B COMP W-C TABLET PO SCH (08:54)
[2017-07-27] MEDS: METHADONE HCL 10MG TABLET PO SCH (08:55)
[2017-07-27] MEDS: SEVELAMER CARBONATE 800 MG TABLET PO SCH ×3 (08:55→17:59)
[2017-07-27 12:00] VITALS: BP 142/78
[2017-07-27 16:00] VITALS: BP 127/71
[2017-07-27] MEDS: QUETIAPINE FUMARATE 25MG TABLET PO SCH (17:59)
[2017-07-27 20:00] VITALS: BP 145/75
[2017-07-27] MEDS: ATORVASTATIN CALCIUM 20MG TABLET PO SCH (22:16)
[2017-07-28] VITALS: BP 132/73
[2017-07-28] MEDS: IPRATROPIUM/ALBUTEROL 0.5-3(2.5)MG/3ML NEB HHN SCH ×3 (00:57→09:51)
[2017-07-28] MEDS: PIPERACILLIN/TAZ 2.25G PREMIX 50 ML IV SCH ×2 (02:24→09:04)
[2017-07-28 04:00] VITALS: BP 155/82
[2017-07-28] MEDS: METHYLPREDNISOLONE SOD SUCC 40 MG/ML VIAL IV SCH (06:12)
[2017-07-28] MEDS: BLOOD SUGAR DIAGNOSTIC STRIP TEST SCH ×2 (06:15→12:28)
[2017-07-28] MEDS: HYDROCODONE/ACETAMINOPHEN 5/325MG TABLET PO PRN (06:27)
[2017-07-28 08:00] VITALS: BP 153/80
[2017-07-28] MEDS: SEVELAMER CARBONATE 800 MG TABLET PO SCH (08:10)
[2017-07-28] MEDS: INSULIN LISPRO 100 UNITS/ML SUBCUT SCH (08:10)
[2017-07-28] MEDS: METHADONE HCL 10MG TABLET PO SCH (09:04)
[2017-07-28] MEDS: FOLIC ACID/VITAMIN B COMP W-C TABLET PO SCH (09:04)
[2017-07-28 10:31] VITALS: BP 153/80
[2017-07-28 11:42] VITALS: BP 129/73
== END 2017-07-28 12:30 | DRG 720 ==
LOC: ER 14:04 → 3WST 15:35 → EDBEDREQ 16:50 → EDBEDREQSVC 16:50 → ENRESERV 19:46 → 7WST 07-25 16:30
PROVIDERS: ADMIT Internal Medicine; ATTEND Internal Medicine
PROC: 5A1D70Z Performance of Urinary Filtration, Intermittent, Less than 6 Hours Per Day (ICD-10-PCS; 2017-07-23)
PROC: 30233N1 Transfusion of Nonautologous Red Blood Cells into Peripheral Vein, Percutaneous Approach (ICD-10-PCS; principal; 2017-07-24)
PROC: 5A1D70Z Performance of Urinary Filtration, Intermittent, Less than 6 Hours Per Day (ICD-10-PCS; 2017-07-24)
PROC: 5A1D70Z Performance of Urinary Filtration, Intermittent, Less than 6 Hours Per Day (ICD-10-PCS; 2017-07-26)
DX: A41.9 Sepsis, unspecified organism (principal); J96.91 Respiratory failure, unspecified with hypoxia; R57.9 Shock, unspecified; N18.6 End stage renal disease; C34.90 Malignant neoplasm of unspecified part of unspecified bronchus or lung; I12.0 Hypertensive chronic kidney disease with stage 5 chronic kidney disease or end stage renal disease; J44.1 Chronic obstructive pulmonary disease with (acute) exacerbation; F11.20 Opioid dependence, uncomplicated; F41.9 Anxiety disorder, unspecified; G89.29 Other chronic pain; K21.9 Gastro-esophageal reflux disease without esophagitis; Z99.2 Dependence on renal dialysis; Z91.15 Patient's noncompliance with renal dialysis; Z79.01 Long term (current) use of anticoagulants; Z87.891 Personal history of nicotine dependence; Z79.899 Other long term (current) drug therapy
CPT/HCPCS: 36415; 36600; 71045; 80048; 80053; 82375; 82805; 82962; 83540; 83550; 83605; 84145; 84484; 85014; 85018; 85025; 85610; 86850; 86870; 86900; 86920; 87040; 90686; 90732; 93005; 93970; 94640; 99285; J2543; J2920; J2930; J3370; J7030; J7040; J7050; J7620; P9016